=== PATIENT | male | born 1960 | race Caucasian/White ===

== ENCOUNTER 2017-10-25 22:57 | Emergency (ER) | payer BC, OTHER ==
--- NOTE | 2017-10-25 23:17 | EDM.PDOC ---
ED HPI GENERAL MEDICAL PROBLEM - General Chief Complaint: General Stated Complaint: PAIN BELOW RIB CAGE [phone] Time Seen by Provider: 10/25/17 23:15 Source of Information: Reports: Patient History Limitations: Reports: No Limitations - History of Present Illness INITIAL COMMENTS - FREE TEXT/NARRATIVE: onset low chest-epiG area sharp constant pain after eating cocoa pups for a snack @ 8pm. no N/V. denies heart-gerd. Mid-Sternal Chest Pain Score (Numeric/FACES): 8 - Related Data Allergies Allergy/AdvReac Type Severity Reaction Status Date / Time No Known Allergies Allergy Verified 10/25/17 23:25 Home Meds: Home Meds . [No Known Home Meds] 10/25/17 [History] ED ROS GENERAL - Review of Systems Review Of Systems: ROS reveals no pertinent complaints other than HPI. ED EXAM, GENERAL - Physical Exam Exam: See Below Exam Limited By: No Limitations General Appearance: Alert, WD/WN, Mild Distress, Other (discomfort) Ears: Hearing Grossly Normal Throat/Mouth: Normal Voice, No Airway Compromise Head: Atraumatic Neck: Non-Tender, Full Range of Motion Respiratory/Chest: No Respiratory Distress Cardiovascular: Regular Rate, Rhythm GI/Abdominal: Tender, Other (epig region). No: Distended, Guarding, Rigid, Rebound Neurological: Alert, Oriented, Normal Cognition, Normal Gait, No Motor/Sensory Deficits Psychiatric: Flat Affect Skin Exam: Warm, Dry, Normal Color Lymphatic: No Adenopathy Course - Vital Signs Last Recorded V/S: Last Vital Signs Temp 35.3 C 10/25/17 23:01 Pulse 70 10/25/17 23:01 Resp 20 10/25/17 23:01 BP 216/116 H 10/25/17 23:22 Pulse Ox 98 10/25/17 23:01 - Orders/Labs/Meds Orders: Active Orders 24 hr Category Date Time Status EKG Documentation Completion [RC] STAT Care 10/25/17 23:14 Active Abdomen Pelvis wo Cont [CT] Urgent Exams 10/25/17 23:46 Taken Labs: Laboratory Tests 10/25/17 10/25/17 Range/Units 23:10 23:10 WBC 15.1 H (5.0-10.0) 10^3/uL RBC 5.91 (4.6-6.2) 10^6/uL Hgb 17.3 (14.0-18.0) g/dL Hct 48.8 (40.0-54.0) % MCV 82.6 (80-100) fL MCH 29.3 (27.0-34.0) pg MCHC 35.5 H (33.0-35.0) g/dL Plt Count 173 (150-450) 10^3/uL Neut % (Auto) 88.2 H (42.2-75.2) % Lymph % (Auto) 7.9 L (20.5-50.1) % Yell % (Auto) 3.5 (2-8) % Eos % (Auto) 0.3 L (1.0-3.0) % Baso % (Auto) 0.1 (0.0-1.0) % Sodium 137 (135-145) mmol/L Potassium 3.4 L (3.6-5.0) mmol/L Chloride 101 (101-111) mmol/L Carbon Dioxide 24.0 (21.0-31.0) mmol/L Anion Gap 15.4 BUN 19 H (7-18) mg/dL Creatinine 0.9 (0.6-1.3) mg/dL Est Cr Clr Drug Dosing 91.25 mL/min Estimated GFR (MDRD) > 60 BUN/Creatinine Ratio 21.11 Glucose 168 H (74-105) mg/dL Calcium 9.2 (8.4-10.2) mg/dl Total Bilirubin 0.6 (0.2-1.0) mg/dL AST 32 (10-42) IU/L ALT 38 (10-60) IU/L Alkaline Phosphatase 112 (42-121) IU/L Troponin I < 0.02 (0.00-0.02) ng/ml Total Protein 7.4 (6.7-8.2) g/dl Albumin 4.1 (3.2-5.5) g/dl Globulin 3.3 Albumin/Globulin Ratio 1.24 Amylase 75 (28-100) U/L Lipase < 10 L (22-51) U/L Meds: Medications Discontinued Medications Generic Name Dose Route Start Last Admin Trade Name Freq PRN Reason Stop Dose Admin Al Hydroxide/Mg Hydroxide 30 ml 10/25/17 23:16 10/25/17 23:23 Gi Cocktail PO 10/25/17 23:17 30 ml ONETIME ONE Administration Clonidine HCl 0.1 mg 10/25/17 23:16 10/25/17 23:22 Catapres PO 10/25/17 23:17 0.1 mg ONETIME ONE Administration Ketorolac Tromethamine 15 mg 10/25/17 23:34 10/25/17 23:39 Toradol IVPUSH 10/25/17 23:35 15 mg ONETIME ONE Administration - Re-Assessments/Exams Free Text/Narrative Re-Assessment/Exam: 10/25/17 23:46 s/p GI socktail='0'. states eats alot of fatty & fried foods. 10/26/17 01:13 results discussed with pt who is much better s/p IV toradol Departure - Departure Time of Disposition: 01:13 Disposition: Home, Self-Care 01 Condition: Good Clinical Impression: Abdominal pain Qualifiers: Abdominal location: epigastric Qualified Code(s): R10.13 - Epigastric pain - Discharge Information Instructions: Abdominal Pain, Adult, [id number] Forms: ED Department Discharge Additional Instructions: 1) avoid fatty fried oily foods 2) avoid spicy foods 3) see clinic Saturday for GALL BLADDER ULTRASOUND 4) recheck if there is any change or concern. - My Orders Last 24 Hours: My Active Orders 10/25/17 23:14 EKG Documentation Completion [RC] STAT 10/25/17 23:46 Abdomen Pelvis wo Cont [CT] Urgent - Assessment/Plan Last 24 Hours: My Active Orders 10/25/17 23:14 EKG Documentation Completion [RC] STAT 10/25/17 23:46 Abdomen Pelvis wo Cont [CT] Urgent
[2017-10-25] MEDS: cloNIDine 0.1 MG Tab PO ONE (23:22)
[2017-10-25] MEDS: GI Cocktail Oral Solution 30 ML PO ONE (23:23)
[2017-10-25 23:37] LABS: CHLORIDE,CL 101 mmol/L (101-111); SODIUM,NA 137 mmol/L (135-145)
[2017-10-25] MEDS: Ketorolac 30 MG/ML SDV IVPUSH ONE (23:39)
--- NOTE | 2017-10-28 17:28 | EKG ---
10/25/2017 - HORACE HENDRICKSON - TIME: 2307 hours. FINDINGS: EKG shows sinus rhythm, rate of 63 per minute. [facility] /[id number]
== END 2017-10-26 01:28 | disposition home or self-care (01) ==
LOC: DL.ED 22:57
DX: R10.13 Epigastric pain (principal); R07.2 Precordial pain
CPT/HCPCS: 36415; 74176; 80053; 82150; 83690; 84484; 85025; 93005; 96374; 99284; A9270; J1885